=== PATIENT | female | born 1945 ===

== ENCOUNTER 2021-01-14 04:47 | Day surgery (SDC) | payer OTHER ==
[~2021-01-14 04:47] MED LIST: ATORVASTATIN CA20 MG PO; LOSARTAN-HCTZ1 EAC1 PO; MIRALAX17 GM PO
== END 2021-01-14 13:40 | disposition home or self-care (01) ==
LOC: CIR.AMB 04:47
PROVIDERS: ATTEND Colon & Rectal Surgery
DX: D01.3 Carcinoma in situ of anus and anal canal (principal); K64.2 Third degree hemorrhoids; K64.8 Other hemorrhoids; Z20.822 Contact with and (suspected) exposure to COVID-19